=== PATIENT | male | born 1990 | race American Indian/Alaskan Native ===

== ENCOUNTER 2017-09-20 20:50 | Emergency (ER) | payer MEDICAID ==
[2017-09-20 20:51] VITALS: BMI 21.1
--- NOTE | 2017-09-20 21:12 | C.PDOC ---
History Of Present Illness Patient presents to the ER with a complaint of feeling depressed and anxious, stating he wants to speak to someone. Denies homicidal ideation or suicidal ideation. Time Seen by Provider: 09/20/17 21:11 Chief Complaint (Nursing): Anxiety History Per: Patient History/Exam Limitations: no limitations Onset/Duration Of Symptoms: Days Current Symptoms Are (Timing): Still Present Suicide/Self Injury Attempted (Context): None Modifying Factor(s): None Severity: None Pain Scale Rating Of: 0 Associated Symptoms: Anxiety, Depression. denies: Suicidal Thoughts, Suicidal Plan Involuntary Hold By: None Recent travel outside of the [place]: No Past Medical History Reviewed: Historical Data, Nursing Documentation, Vital Signs Vital Signs: Last Vital Signs Temp 98.2 F 09/21/17 00:12 Pulse 81 09/21/17 00:12 Resp 20 09/21/17 00:12 BP 110/69 09/21/17 00:12 Pulse Ox 99 09/21/17 00:12 - Medical History PMH: Anxiety, Depression Surgical History: No Surg Hx Family History: States: No Known Family Hx - Social History Hx Alcohol Use: Yes Hx Substance Use: Yes Review Of Systems Constitutional: Negative for: Fever, Chills Gastrointestinal: Negative for: Nausea, Vomiting, Diarrhea Psych: Positive for: Anxiety, Depression. Negative for: Suicidal ideation, Other (Homicidal ideation) Physical Exam - Physical Exam Appears: Non-toxic, No Acute Distress Skin: Warm, Dry Head: Normacephalic Oral Mucosa: Moist Chest: Symmetrical Cardiovascular: Rhythm Regular Respiratory: No Rales, No Rhonchi, No Wheezing Gastrointestinal/Abdominal: Soft, No Tenderness Neurological/Psych: Oriented x3 ED Course And Treatment - Laboratory Results Result Diagrams: 09/20/17 21:30 09/20/17 21:30 O2 Sat by Pulse Oximetry: 99 (Room air) Pulse Ox Interpretation: Normal Progress Note: Blood work and urinalysis ordered. Crisis notified. Dr Arellano cleared the pt for discharge. Asked to give respirdal a nd cogentin 1 mg po bid for 15 days with 1 refill Disposition Counseled Patient/Family Regarding: Studies Performed, Diagnosis, Need For Followup - Disposition Referrals: [facility] [Outside] [facility] [Outside] Disposition: HOME/ ROUTINE Disposition Time: 21:12 Condition: FAIR Prescriptions: Benztropine [Cogentin] 1 mg PO BID #30 amp Risperidone [Risperdal] 1 mg PO BID #30 tablet Instructions: Schizophrenia (ED) Forms: [facility] (Maltese) - Clinical Impression Clinical Impression: Schizophrenia, unspecified - Scribe Statement The provider has reviewed the documentation as recorded by the Scribe Sd Antoine All medical record entries made by the Scribe were at my direction and personally dictated by me. I have reviewed the chart and agree that the record accurately reflects my personal performance of the history, physical exam, medical decision making, and the department course for this patient. I have also personally directed, reviewed, and agree with the discharge instructions and disposition.
[2017-09-20 21:48] LABS: CHLORIDE 101 mmol/L (98-107)
[2017-09-20 21:49] LABS: POTASSIUM 3.3 mmol/L (3.6-5.2); SODIUM 138 mmol/L (132-148)
[2017-09-20 21:51] LABS: BASO # 0.1 K/uL (0.0-0.2); BASO % 1.5 % (0.0-2.0); CARBON DIOXIDE 25 mmol/L (22-30); EOS # 0.1 K/uL (0.0-0.7); EOS % 2.1 % (0.0-4.0); GFR AFRICAN-AMERICAN > 60; HEMATOCRIT 45.6 % (35.0-51.0); LYMPH # 1.1 K/uL (1.0-4.3); LYMPH % 17.5 % (20.0-40.0); MEAN CELL VOLUME 82.4 fL (80.0-94.0); MEAN CORPUSCULAR HEMOGLOBIN 27.3 pg (27.0-31.0); MEAN CORPUSCULAR HGB CONC 33.2 g/dL (33.0-37.0); MEAN PLATELET VOLUME 9.8 fL (7.2-11.7); MONO # 0.7 K/uL (0.0-0.8); MONO % 10.9 % (0.0-10.0); RED CELL DISTRIBUTION WIDTH 13.7 % (11.5-14.5); WHITE BLOOD COUNT 6.4 K/uL (4.8-10.8)
[2017-09-20 21:52] LABS: ALB/GLOB RATIO 1.2 (1.0-2.1); ALKALINE PHOSPHATASE 56 U/L (38-126); ALT/SGPT 28 U/L (21-72); AST/SGOT 21 U/L (17-59); BILIRUBIN,TOTAL 0.5 mg/dL (0.2-1.3); BLOOD UREA NITROGEN 12 mg/dL (9-20); CALCIUM 8.9 mg/dl (8.6-10.4); GLUCOSE,RANDOM 82 mg/dL (75-110); TOTAL PROTEIN 7.9 g/dL (6.3-8.3)
[2017-09-20 21:53] LABS: ALCOHOL SERUM < 10 mg/dl (0-10)
[2017-09-20] MEDS ORDERED: Potassium Chloride 10 mEq ER Tab PO STA (22:59)
[2017-09-20] MEDS ORDERED: Potassium Chloride 20 mEq ER Tab PO ONE (23:18)
[2017-09-21 01:58] VITALS: BP 114/76; PULSE 72; RESP 18; TEMP 97.3; O2SAT 98
== END 2017-09-21 01:49 | disposition home or self-care (01) ==
LOC: C.ER 20:50
DX: F20.9 Schizophrenia, unspecified (principal)